=== PATIENT | male | born 1940 | race Caucasian/White ===

== ENCOUNTER 2018-10-24 12:44 | Emergency (ER) | payer MEDICARE, BC ==
[2018-10-24 13:09] VITALS: BP 163/84
--- NOTE | 2018-10-24 13:39 | UC ---
Nausea/Vomiting/Diarrhea HPI - HPI Summary HPI Summary: 77-year-old male comes in with a chief complaint of diarrhea. This started 1 week ago. Typically what happens he starts he is some lower abdominal cramping and then within a few minutes he has a watery stool. The cramping goes away after the stool. No nausea no vomiting no fevers no chills. Has not seen any blood in the stools. The cramping only comes before the bowel movement he does not have any abdominal pain otherwise. No recent travel no recent antibiotics. Feels well otherwise. - History of Current Complaint Chief Complaint: UCGI Stated Complaint: GASTROINTESTINAL DISCOMFORT Time Seen by Provider: 10/24/18 13:21 Pain Intensity: 0 - Allergies/Home Medications Allergies/Adverse Reactions: Allergies Allergy/AdvReac Type Severity Reaction Status Date / Time No Known Allergies Allergy Verified 10/24/18 13:05 Home Medications: Home Medications Melatonin [Ra Melatonin] 10 mg PO DAILY 10/24/18 [History Confirmed 10/24/18] PMH/Surg Hx/FS Hx/Imm Hx Previously Healthy: Yes - Surgical History Surgical History: Yes Surgery Procedure, Year, and Place: Cholecystectomy, 2012, [place]; Umbilical Herniorrhaphy, 2000, [place]; Knee Arthroscopy, ~1990, [place] - Family History Known Family History: Positive: Hypertension - Social History Alcohol Use: None Substance Use Type: None Smoking Status (MU): Former Smoker Length of Time of Smoking/Using Tobacco: 1 PPD x 15 Years When Did the Patient Quit Smoking/Using Tobacco: ~1972 Review of Systems All Other Systems Reviewed And Are Negative: Yes Constitutional: Positive: Negative Skin: Positive: Negative Eyes: Positive: Negative ENT: Positive: Negative Respiratory: Positive: Negative Cardiovascular: Positive: Negative Gastrointestinal: Positive: Diarrhea. Negative: Abdominal Pain, Vomiting, Nausea Genitourinary: Positive: Negative Motor: Positive: Negative Neurovascular: Positive: Negative Musculoskeletal: Positive: Negative Neurological: Positive: Negative Psychological: Positive: Negative Is Patient Immunocompromised?: No Physical Exam Triage Information Reviewed: Yes Appearance: Well-Appearing, No Pain Distress, Well-Nourished Vital Signs: Initial Vital Signs Temp 97.2 F 10/24/18 12:58 Pulse 108 10/24/18 12:58 Resp 16 10/24/18 12:58 BP 163/84 10/24/18 12:58 Pulse Ox 99 10/24/18 12:58 Vital Signs Reviewed: Yes Eye Exam: Normal Eyes: Positive: Conjunctiva Clear Neck exam: Normal Neck: Positive: Supple Respiratory: Positive: Lungs clear, Normal breath sounds, No respiratory distress Cardiovascular: Positive: RRR Abdomen Description: Positive: Nontender, Soft Bowel Sounds: Positive: Present Musculoskeletal Exam: Normal Musculoskeletal: Positive: Strength Intact, ROM Intact Neurological Exam: Normal Neurological: Positive: Alert, Muscle Tone Normal Psychological Exam: Normal Psychological: Positive: Normal Response To Family, Age Appropriate Behavior Skin Exam: Normal Naus/Vom/Diarrhea Course/Dx - Course Course Of Treatment: Patient was able to provide a stool sample in clinic. This was sent to the lab. The overall plan is to follow-up on those stool results. If the patient's not completely improved he needs to follow-up his primary care physician. We discussed the things got worse with fever continued pain not feeling well blood in the stool he needs to go the emergency department. - Differential Dx/Diagnosis Provider Diagnosis: Diarrhea Condition At Discharge: Stable Discharge - Sign-Out/Discharge Documenting (check all that apply): Patient Departure All imaging exams completed and their final reports reviewed: No Studies - Discharge Plan Condition: Stable Disposition: HOME Patient Education Materials: Acute Diarrhea (ED) Referrals: Demetrius Saini MD [Primary Care Provider] - Additional Instructions: FOLLOW UP WITH YOUR DOCTOR. GO TO THE EMERGENCY DEPARTMENT FOR ANY WORSENING OF YOUR CONDITION; PAIN, FEVER , BLOOD IN YOUR STOOL, YOU FEEL ILL OR QUESTIONS OR CONCERNS. - Billing Disposition and Condition Condition: STABLE Disposition: Home
== END 2018-10-24 14:08 | disposition home or self-care (01) ==
LOC: UCCORT 12:44
DX: R19.7 Diarrhea, unspecified (principal); Z87.891 Personal history of nicotine dependence
CPT/HCPCS: 82270; 83630; 87045; 87046; 87077; 87328; 87329; 87493; 87899; 99211; G0463